=== PATIENT | male | born 2000 | race African-American/Black ===

== ENCOUNTER 2019-06-06 15:37 | Emergency (ER) | payer OTHER, MEDICAID ==
[~2019-06-06] VITALS: Ht 175.3 cm; Wt 72.6 kg
[~2019-06-06 15:37] MED LIST: CLON0.1T PO; CLON0.5T PO; DIVA250T51 PO; OLAN20TA13 PO; TRAZ100T2 PO
[2019-06-06] MEDS ORDERED: SODIUM CHLORIDE 0.9% 500 ML IVB ONE (15:54)
[2019-06-06] MEDS ORDERED: LORazepam 2MG/ML-1ML VIAL IV ONE (16:00)
[2019-06-06 17:08] LABS: Basophils # (auto) 0.1 uL; Basophils % (auto) 0.8 % (0.0-2.0); Eosinophils # (auto) 0.1 uL; Eosinophils % (auto) 0.7 % (0.0-7.0); Hematocrit 38.5 % (41.0-53.0); Lymphocytes # (auto) 1.3 uL; Lymphocytes % (auto) 15.8 % (10.0-50.0); Mean Corpuscular Hemoglobin 28.8 pg (28.0-32.0); Mean Corpuscular Hgb Conc. 33.9 g/dL (32.0-36.0); Monocytes # (auto) 0.3 uL; Monocytes % (auto) 3.6 % (0.0-12.0); Neutrophils # (auto) 6.3 uL; Neutrophils % (auto) 79.1 % (37.0-80.0); Nucleated Red Blood Cells % 0.1 %; Platelet Count (auto) 191 10^3/uL (140-450); Red Blood Cells 4.53 10^6/uL (4.5-5.90); Red Cell Distribution Width 17.1 % (11.8-14.3)
[2019-06-06 17:14] LABS: Albumin 3.8 g/dL (3.4-5.0); Anion Gap 8 (5-15); BUN/Creatinine Ratio 12.2; Blood Urea Nitrogen 12 mg/dL (7-18); Calcium 8.7 mg/dL (8.5-10.1); Carbon Dioxide 18 mmol/L (21-32); Chloride 115 mmol/L (98-107); GFR African American 125 mL/min; GFR Non-African American 104 mL/min; Glucose 94 mg/dL (74-106); Potassium 3.5 mmol/L (3.5-5.1); Sodium 141 mmol/L (136-145)
[2019-06-06 17:19] LABS: Alanine Aminotransferase 10 U/L (16-61); Alkaline Phosphatase 96 U/L (45-117); Aspartate Aminotransferase 11 U/L (15-37); Bilirubin, Total 0.2 mg/dL (0.2-1.0); Blood Alcohol < 3.0 mg/dL (0-5); Total Protein 7.6 g/dL (6.4-8.2)
[2019-06-06 18:31] VITALS: BP 101/73
== END 2019-06-06 18:37 | disposition left against medical advice (07) ==
LOC: EDBD 15:37 → ER 15:37
DX: F41.9 Anxiety disorder, unspecified (principal); F84.0 Autistic disorder; Z77.22 Contact with and (suspected) exposure to environmental tobacco smoke (acute) (chronic)
CPT/HCPCS: 36415; 80053; 80320; 85025; 96374; 99284; J2060

== ENCOUNTER 2021-07-10 14:07 | Emergency (ER) | payer MEDICAID, OTHER ==
[~2021-07-10] VITALS: Ht 182.9 cm; Wt 63.5 kg
[~2021-07-10 14:07] MED LIST changes: +DIVA250T4 PO; -DIVA250T51 PO; +OLAN20TA PO; -OLAN20TA13 PO; -TRAZ100T2 PO; +TRAZ100T3 PO
[2021-07-10] MEDS ORDERED: LORazepam 2MG/ML-1ML VIAL IV ONE (19:30)
[2021-07-10] MEDS ORDERED: SODIUM CHLORIDE 0.9% 500 ML IV ONE (19:30)
[2021-07-10] MEDS ORDERED: LIDOCAINE 1% (LOCAL ANESTH.) PF 5ml SDV ID ONE (19:30)
[2021-07-10] MEDS ORDERED: BACITRACIN TOP OINT 1 UD PKG TOP ONE (19:30)
[2021-07-10 21:30] VITALS: BP 134/67
== END 2021-07-10 23:51 | disposition home or self-care (01) ==
LOC: ER 14:07
DX: S01.81XA Laceration without foreign body of other part of head, initial encounter (principal); S01.01XA Laceration without foreign body of scalp, initial encounter; R56.9 Unspecified convulsions; G80.9 Cerebral palsy, unspecified; Z77.22 Contact with and (suspected) exposure to environmental tobacco smoke (acute) (chronic); W18.39XA Other fall on same level, initial encounter; Y93.89 Activity, other specified; Y92.89 Other specified places as the place of occurrence of the external cause; Y99.8 Other external cause status
CPT/HCPCS: 12002; 12013; 70450; 96365; 96366; 99284; J1953; J2001; J7040; J7060

== ENCOUNTER 2021-11-19 13:45 | Emergency (ER) | payer MEDICAID ==
[2021-11-19 15:55] VITALS: BP 117/83
[2021-11-19] MEDS ORDERED: LORazepam 2MG/ML-1ML VIAL IM ONE (17:00)
[2021-11-19] MEDS ORDERED: CLIN300C8 PO (17:22)
== END 2021-11-19 17:50 | disposition home or self-care (01) ==
LOC: ER 13:45
DX: S01.511A Laceration without foreign body of lip, initial encounter (principal); R56.9 Unspecified convulsions; Z79.2 Long term (current) use of antibiotics; Z79.899 Other long term (current) drug therapy; Z88.8 Allergy status to other drugs, medicaments and biological substances; W18.39XA Other fall on same level, initial encounter; Y93.89 Activity, other specified; Y92.89 Other specified places as the place of occurrence of the external cause; Y99.8 Other external cause status
CPT/HCPCS: 12013; 70450; 70486; 96372; 99284; J2001; J2060